=== PATIENT | male | born 1955 | race Two or more races ===

== ENCOUNTER 2018-09-05 03:50 | Emergency (ER) | payer MEDICAID ==
[~2018-09-05] VITALS: Ht 167.6 cm; Wt 106.6 kg
[2018-09-05] MEDS ORDERED: AMLO5TAB4 PO (04:12)
--- NOTE | 2018-09-05 04:17 | NUR ---
Dr. Barrow at bedside for MSE.
[2018-09-05] MEDS ORDERED: ONDANSETRON ODT 4 MG TAB.RAPDIS ONE (04:26)
--- NOTE | 2018-09-05 04:26 | NUR ---
Pt out of ER for cT.
[2018-09-05] MEDS ORDERED: ONDANSETRON ODT 4 MG TAB.RAPDIS SL ONE (04:30)
--- NOTE | 2018-09-05 04:48 | NUR ---
Pt back to ER from CT.
[2018-09-05] MEDS ORDERED: predniSONE 20 MG TABLET ONE (05:06)
--- NOTE | 2018-09-05 05:10 | NUR ---
Patient discharged to home in stable conditon. Written and verbal after care instructions given. Patient verbalizes understanding of instructions. Pt ambulated out of ER with steady gait, no acute signs of distress, VSS, all belongings taken.
[2018-09-05 05:11] VITALS: BP 148/94
[2018-09-05] MEDS ORDERED: predniSONE 20 MG TABLET PO ONE (05:15)
== END 2018-09-05 05:11 | disposition home or self-care (01) ==
LOC: ER 03:53
DX: H83.90 Unspecified disease of inner ear, unspecified ear (principal); Z79.899 Other long term (current) drug therapy
CPT/HCPCS: 70450; 99284; J7512; A4663; Q0162